=== PATIENT | female | born 1945 | race Caucasian/White ===

== ENCOUNTER 2018-01-31 13:08 | Emergency (ER) | payer MEDICARE, MEDICAID, SELFPAY ==
[2018-01-31 13:09] VITALS: BP 121/75; PULSE 74; RESP 18; O2SAT 98; BMI 26.5
--- NOTE | 2018-01-31 13:13 | [facility].EDSKAF ---
ED Disposition Clinical Impression: Cellulitis of left hand excluding fingers and thumb Disposition: Home, Self-Care Condition on Discharge: Good Additional Instructions: Draw a line around erythematous area, date and time it; do serial checks q shift; if any fever, vomiting, not keeping down antibiotics or if cellulitis becomes circumferential, involves digits or expands to twice its current size contact PCP for further instructions; needs to be seen by PCP in one to two days for recheck hand. Continue Keflex and Bactrim as prescribed, given first doses in ER today and will need second doses this evening before bed. Prescriptions: cephALEXin [Keflex 500mg Cap] 500 mg PO QID #40 cap Sulfamethoxazole/Trimethoprim [Bactrim DS tablet] 1 each PO BID 10 Days #20 tab - Critical Care Critical Care Time: No Attestation: On , the high probability of a clinically significant, sudden or life threatening deterioration of the following system(s) required my full and direct attention, intervention and personal management. The time I documented below is in addition to time spent performing reported procedures but includes the following listed in this critical care notation. Medical Decision Making - Medical Records Medical records reviewed: Yes: I reviewed the patient's medical records. - Wade Inquiry Pt receiving controlled substance: No Vital Signs: 01/31/18 13:09 Temperature Source Oral Pulse Rate [Right Brachial] 74 Respiratory Rate 18 Blood Pressure [Right Arm] 121/75 Blood Pressure Mean [Right Arm] 90 Blood Pressure Source [Right Arm] Automatic Cuff Blood Pressure Position [Right Arm] Sitting 02 Sat by Pulse Oximetry 98 Oxygen Delivery Method Room Air Orders (Tests/Meds): ED MEDICATIONS Discontinued Medications Generic Name Dose Route Start Last Admin Trade Name Phylicia PRN Reason Stop Dose Admin Cephalexin HCl 500 mg 01/31/18 13:48 01/31/18 14:20 Cephalexin 500mg Capsule PO 01/31/18 13:49 500 mg ONCE ONE Administration Protocol Trimethoprim/Sulfamethoxazole 1 each 01/31/18 13:49 01/31/18 14:21 Bactrim Ds Tablet PO 01/31/18 13:50 1 each ONCE ONE Administration Protocol - Reevaluation(s) Time: 14:24 (alert, no complaints, given her scheduled meds, is drinking fluids, able to get out of bed with minimal assistance and able to transfer to a chair w/o assistance; she says it doesn't matter if she has a walker or not but has used one in the past. ) Skin/Abscess/FB HPI - General Chief complaint: Weakness Stated complaint: left hand red Time Seen by Provider: 01/31/18 13:14 Mode of Arrival: EMS Source of Information: EMS, Medical Record Limitations: No Limitations - History of Present Illness HPI narrative: Red hand for the last day or so, dorsum only. No fever or vomiting; FSBS 258 per EMS. No trauma; no joint pain. Patient arrives able to transfer from bed to chair with minimal assistance. Has no complaints. MD complaint: rash Onset (ago): day(s) Tetanus up to date: yes Location: L hand Severity: mild Consistency: constant Relieving factors: none Exacerbating factors: none Context: none Associated symptoms: denies other symptoms Treatments prior to arrival: none - Related Data Previous Rx's Medication Instructions Recorded Sulfamethoxazole/Trimethoprim 1 each PO BID 10 Days #20 tab 01/31/18 [Bactrim DS tablet] cephALEXin [Keflex 500mg Cap] 500 mg PO QID #40 cap 01/31/18 Allergies Allergy/AdvReac Type Severity Reaction Status Date / Time No Known Allergies Allergy Verified 01/31/18 13:14 [facility] History I have reviewed the patient's past medical history: Yes Medical History: Reports:: Diabetes Mellitus Type 2 (psych; ) ROS Obtained: Yes All systems reviewed & no additional complaints Physical Exam - General General appearance: alert, in no apparent distress, other (afebrile) - Head Head exam: atraumatic, normocephalic, normal in
--- NOTE | 2018-01-31 13:16 | ED_ITS ---
ED Disposition Clinical Impression: Cellulitis of left hand excluding fingers and thumb Disposition: Home, Self-Care Condition on Discharge: Good Additional Instructions: Draw a line around erythematous area, date and time it; do serial checks q shift; if any fever, vomiting, not keeping down antibiotics or if cellulitis becomes circumferential, involves digits or expands to twice its current size contact PCP for further instructions; needs to be seen by PCP in one to two days for recheck hand. Continue Keflex and Bactrim as prescribed, given first doses in ER today and will need second doses this evening before bed. Prescriptions: cephALEXin [Keflex 500mg Cap] 500 mg PO QID #40 cap Sulfamethoxazole/Trimethoprim [Bactrim DS tablet] 1 each PO BID 10 Days #20 tab - Critical Care Critical Care Time: No Attestation: On , the high probability of a clinically significant, sudden or life threatening deterioration of the following system(s) required my full and direct attention, intervention and personal management. The time I documented below is in addition to time spent performing reported procedures but includes the following listed in this critical care notation. Medical Decision Making - Medical Records Medical records reviewed: Yes: I reviewed the patient's medical records. - Wade Inquiry Pt receiving controlled substance: No Vital Signs: 01/31/18 13:09 Temperature Source Oral Pulse Rate [Right Brachial] 74 Respiratory Rate 18 Blood Pressure [Right Arm] 121/75 Blood Pressure Mean [Right Arm] 90 Blood Pressure Source [Right Arm] Automatic Cuff Blood Pressure Position [Right Arm] Sitting 02 Sat by Pulse Oximetry 98 Oxygen Delivery Method Room Air Orders (Tests/Meds): ED MEDICATIONS Discontinued Medications Generic Name Dose Route Start Last Admin Trade Name Phylicia PRN Reason Stop Dose Admin Cephalexin HCl 500 mg 01/31/18 13:48 01/31/18 14:20 Cephalexin 500mg Capsule PO 01/31/18 13:49 500 mg ONCE ONE Administration Protocol Trimethoprim/Sulfamethoxazole 1 each 01/31/18 13:49 01/31/18 14:21 Bactrim Ds Tablet PO 01/31/18 13:50 1 each ONCE ONE Administration Protocol - Reevaluation(s) Time: 14:24 (alert, no complaints, given her scheduled meds, is drinking fluids , able to get out of bed with minimal assistance and able to transfer to a chair w/o assistance; she says it doesn't matter if she has a walker or not but has used one in the past. ) Skin/Abscess/FB HPI - General Chief complaint: Weakness Stated complaint: left hand red Time Seen by Provider: 01/31/18 13:14 Mode of Arrival: EMS Source of Information: EMS, Medical Record Limitations: No Limitations - History of Present Illness HPI narrative: Red hand for the last day or so, dorsum only. No fever or vomiting; FSBS 258 per EMS. No trauma; no joint pain. Patient arrives able to transfer from bed to chair with minimal assistance. Has no complaints. MD complaint: rash Onset (ago): day(s) Tetanus up to date: yes Location: L hand Severity: mild Consistency: constant Relieving factors: none Exacerbating factors: none Context: none Associated symptoms: denies other symptoms Treatments prior to arrival: none - Related Data Previous Rx's Medication Instructions Recorded Sulfamethoxazole/Tr
--- NOTE | 2018-01-31 13:49 | PC.NURSE ---
Mariano called for transport back
[2018-01-31 15:30] VITALS: BP 113/76; PULSE 75; RESP 20; TEMP 36.6; O2SAT 97
== END 2018-01-31 15:30 | disposition home or self-care (01) ==
PROVIDERS: Emergency Provider Emergency Medicine
DX: L03.114 Cellulitis of left upper limb (principal); E11.9 Type 2 diabetes mellitus without complications
CPT/HCPCS: 99281

== ENCOUNTER → 2018-07-16 07:22 | Outpatient (REF) | payer MEDICARE, MEDICAID, SELFPAY ==
[2018-07-16 07:26] LABS: Adenovirus F 40/41, stool Not Detected (NotDetected); Astrovirus Not Detected (NotDetected); Campylobacter Not Detected (NotDetected); Clostridium Difficile A/B, PCR Not Detected (NotDetected); Cryptosporidium Not Detected (NotDetected); Cyclospora Cayetanesis Not Detected (NotDetected); Entamoeba histolytica Not Detected (NotDetected); Enteroaggregative E coli Not Detected (NotDetected); Enteropathogenic E coli Not Detected (NotDetected); Enterotoxigenic E coli Not Detected (NotDetected); Giardia lamblia Not Detected (NotDetected); Norovirus Not Detected (NotDetected); Plesimonas Shigalloides, PCR Not Detected (NotDetected); Rotavirus A Not Detected (NotDetected); Salmonella, PCR Not Detected (NotDetected); Sapovirus Not Detected (NotDetected); Shiga-like toxin E coli Not Detected (NotDetected); Shigella Enterovasive E coli Not Detected (NotDetected); Vibrio Cholerae Not Detected (NotDetected); Vibrio, PCR Not Detected (NotDetected); Yersinia Entercolitica, PCR Not Detected (NotDetected)
== END ==
LOC: LAB 07:22
PROVIDERS: Visit Provider Emergency Medicine
DX: R19.7 Diarrhea, unspecified (principal)
CPT/HCPCS: 87507

== ENCOUNTER → 2018-09-10 14:59 | Outpatient (CLI) | payer MEDICARE, MEDICAID, SELFPAY ==
[2018-09-10 15:05] LABS: Microscopic, Urine URINE MICROSCOPIC (MICROSCOPIC)
[2018-09-10 15:19] LABS: Basophils % 0.3 % (0.1-2.0); Eosinophils % 0.2 % (0.1-12.0); Hematocrit 37.7 % (37.0-47.0); Hemoglobin 12.5 g/dL (12.2-16.2); Lymphocytes # 1.4 K/mm3 (0.7-4.5); Lymphocytes % 8.5 K/mm3 (10-50); Mean Corpuscular HGB Conc 33.2 g/dL (31.8-35.4); Mean Corpuscular Hemoglobin 29.4 pg (27.0-31.2); Mean Corpuscular Volume 88.4 fl (81-99); Mean Platelet Volume 7.2 fl (7.4-10.4); Monocytes # 1.1 K/mm3 (0.1-1.0); Monocytes % 6.5 % (1.7-9.3); Neutrophils # 13.8 K/mm3 (1.8-7.8); Neutrophils % 84.6 % (37.0-80.0); Platelet Count 414 K/mm3 (142-424); Red Blood Count 4.26 M/mm3 (4.20-5.40); Red Cell Distribution Width 14.6 % (11.5-17.5); White Blood Count 16.3 K/mm3 (4.8-10.8)
[2018-09-10 15:23] LABS: MANUAL DIFFERENTIAL MANUAL DIFFERENTIAL (MANUAL DIFF)
[2018-09-10 15:26] LABS: Appearance,Urine CLOUDY (Clear); Blood, Urine Negative (Negative); Color,Urine DK YELLOW (Yellow); Glucose,Urine (UA) 1+ (Negative); Ketones,Urine TRACE (Negative); Leukocyte Esterase,Urine Negative (Negative); Nitrate,Urine Negative (Negative); Protein,Urine 1+ (Negative); Specific Gravity, Urine 1.025 (1.005-1.030)
[2018-09-10 15:39] LABS: Bilirubin,Urine 1+ (Negative)
[2018-09-10 15:41] LABS: Bacteria,Urine Trace /lpf; Squamous Epithelial Cell,Urine Occasional #/hpf (0-5)
[2018-09-10 16:32] LABS: Lymphocytes % 9 % (10-50); Monocytes % 7 % (2-9); Neutrophils % 80 % (42-76); Total Cells Counted 100
[2018-09-10 16:34] LABS: Platelet Estimate Normal
[2018-09-10 17:59] LABS: Alanine Aminotransferase 36 U/L (12-78); Albumin/Globulin Ratio 0.9 (1.1-1.8); Alkaline Phosphatase 66 U/L (46-116); Anion Gap 13.4 mEq/L (5-15); Aspartate Amino Transferase 30 U/L (15-37); Bilirubin,Total 1.1 mg/dL (0.2-1.0); Blood Urea Nitrogen 24 mg/dL (7-18); Calcium 8.9 mg/dL (8.5-10.1); Carbon Dioxide 28 mmol/L (21.0-32.0); Chloride 96 mmol/L (98-107); Creatinine,Serum 0.66 mg/dL (0.55-1.02); Estimated Glomerular Filt Rate 88 ml/min (>60); GFR (African American) 106 ML/MIN (>60); Globulin 3.5 gm/dl (1.3-3.2); Glucose 101 mg/dL (74-106); Potassium 3.4 mmoL/L (3.5-5.1); Sodium 134 mmol/L (136-145); Total Protein,Serum 6.5 gm/dL (6.4-8.2)
== END ==
PROVIDERS: Visit Provider Emergency Medicine
DX: E11.9 Type 2 diabetes mellitus without complications (principal); R19.7 Diarrhea, unspecified
CPT/HCPCS: 80053; 81001; 85007; 85025

== ENCOUNTER → 2018-09-11 02:20 | Outpatient (CLI) | payer MEDICARE, MEDICAID, SELFPAY ==
[2018-09-11 15:24] LABS: Adenovirus F 40/41, stool Not Detected (NotDetected); Astrovirus Not Detected (NotDetected); Campylobacter Not Detected (NotDetected); Cryptosporidium Not Detected (NotDetected); Cyclospora Cayetanesis Not Detected (NotDetected); Entamoeba histolytica Not Detected (NotDetected); Enteroaggregative E coli Not Detected (NotDetected); Enteropathogenic E coli Not Detected (NotDetected); Enterotoxigenic E coli Not Detected (NotDetected); Giardia lamblia Not Detected (NotDetected); Norovirus Not Detected (NotDetected); Plesimonas Shigalloides, PCR Not Detected (NotDetected); Rotavirus A Not Detected (NotDetected); Salmonella, PCR Not Detected (NotDetected); Sapovirus Not Detected (NotDetected); Shiga-like toxin E coli Not Detected (NotDetected); Shigella Enterovasive E coli Not Detected (NotDetected); Vibrio Cholerae Not Detected (NotDetected); Vibrio, PCR Not Detected (NotDetected); Yersinia Entercolitica, PCR Not Detected (NotDetected)
[2018-09-11 20:01] LABS: Clostridium Difficile A/B, PCR Detected (NotDetected)
== END ==
LOC: LAB 15:21 → LAB.DROPOF 15:22
PROVIDERS: Visit Provider Emergency Medicine
DX: R19.7 Diarrhea, unspecified (principal)
CPT/HCPCS: 87507

== ENCOUNTER 2018-11-04 13:48 | Observation (INO) ==
[2018-11-04 14:25] LABS: Basophils % 0.6 % (0.1-2.0); Eosinophils # 0.1 K/mm3 (0.0-0.4); Eosinophils % 1.1 % (0.1-12.0); Hematocrit 41.4 % (37.0-47.0); Hemoglobin 13.2 g/dL (12.2-16.2); Lymphocytes # 1.5 K/mm3 (0.7-4.5); Lymphocytes % 17.8 % (10-50); Mean Corpuscular HGB Conc 31.8 g/dL (31.8-35.4); Mean Corpuscular Volume 91.4 fl (81-99); Mean Platelet Volume 7.3 fl (7.4-10.4); Monocytes # 0.4 K/mm3 (0.1-1.0); Monocytes % 4.7 % (1.7-9.3); Neutrophils # 6.2 K/mm3 (1.8-7.8); Neutrophils % 75.8 % (37.0-80.0); Platelet Count 522 K/mm3 (142-424); Red Blood Count 4.53 M/mm3 (4.20-5.40); Red Cell Distribution Width 15.3 % (11.5-17.5); White Blood Count 8.2 K/mm3 (4.8-10.8)
[2018-11-04 14:36] LABS: Alanine Aminotransferase 24 U/L (12-78); Albumin Level 3.2 gm/dL (3.4-5.0); Albumin/Globulin Ratio 0.8 (1.1-1.8); Alkaline Phosphatase 94 U/L (46-116); Amylase 60 U/L (25-115); Anion Gap 18.5 mEq/L (5-15); Aspartate Amino Transferase 24 U/L (15-37); Bilirubin,Total 0.4 mg/dL (0.2-1.0); Blood Urea Nitrogen 45 mg/dL (7-18); Calcium 9.4 mg/dL (8.5-10.1); Carbon Dioxide 27 mmol/L (21.0-32.0); Chloride 107 mmol/L (98-107); Globulin 4.2 gm/dl (1.3-3.2); Glucose 100 mg/dL (74-106); Lipase 78 u/L (73-393); Potassium 3.5 mmoL/L (3.5-5.1); Sodium 149 mmol/L (136-145); Total Protein,Serum 7.4 gm/dL (6.4-8.2)
--- NOTE | 2018-11-04 14:45 | Emergency Department Note ---
ED Disposition Clinical Impression: Dehydration Dysphagia Qualifiers: Dysphagia type: unspecified Qualified Code(s): R13.10 - Dysphagia, unspecified Disposition: Still a Patient Condition on Discharge: Fair Referrals: Provider,Referral, [Primary Care Provider] - - Critical Care Critical Care Time: No Attestation: On 11/04/18, the high probability of a clinically significant, sudden or life threatening deterioration of the following system(s) required my full and direct attention, intervention and personal management. The time I documented below is in addition to time spent performing reported procedures but includes the following listed in this critical care notation. Medical Decision Making - Wade Inquiry Pt receiving controlled substance: No Vital Signs: 11/04/18 13:46 11/04/18 13:52 Temperature 98.0 F Temperature Source Oral Pulse Rate [Right] 78 Respiratory Rate 18 Blood Pressure [Right Arm] 95/61 L 111/62 Blood Pressure Mean [Right Arm] 72 78 Blood Pressure Source [Right Arm] Automatic Cuff Automatic Cuff Blood Pressure Position [Right Arm] Sitting Sitting 02 Sat by Pulse Oximetry 97 98 Oxygen Delivery Method Room Air - Lab Data Lab Results 11/04/18 14:10: WBC 8.2, RBC 4.53, Hgb 13.2, Hct 41.4, MCV 91.4, MCH 29.0, MCHC 31.8, RDW 15.3, Plt Count 522 H, MPV 7.3 L, Neut % (Auto) 75.8, Lymph % (Auto) 17.8, [place] % (Auto) 4.7, Eos % (Auto) 1.1, Baso % (Auto) 0.6, Neut # (Auto) 6.2, Lymph # (Auto) 1.5, [place] # (Auto) 0.4, Eos # (Auto) 0.1, Baso # (Auto) 0.0 11/04/18 14:10: Sodium 149 H, Potassium 3.5, Chloride 107, Carbon Dioxide 27, Anion Gap 18.5 H, BUN 45 H, Creatinine 1.22 H, Estimated Creat Clear 30, Estimated GFR 43 L, Est GFR ( Amer) 52 L, Glucose 100, Calcium 9.4, Total Bilirubin 0.4, AST 24, ALT 24, Alkaline Phosphatase 94, Troponin I < 0.02, Total Protein 7.4, Albumin 3.2 L, Globulin 4.2 H, Albumin/Globulin Ratio 0.8 L, Amylase 60, Lipase 78 11/04/18 14:10: Lactate 0.9 11/04/18 14:39: Urine Color Yellow, Urine Appearance Sl cloudy, Urine pH 6.0, Ur Specific [place] 1.025, Urine Protein Trace, Urine Glucose (UA) Negative, Urine Ketones Trace, Urine Blood Trace-l, Urine Nitrate Negative, Urine Bilirubin Negative, Urine Urobilinogen 0.2, Ur Leukocyte Esterase 2+ A, Urine RBC None, Urine WBC 5-10, Ur Squamous Epith Cells 5-10, Urine Bacteria 3+ Result diagrams: 11/04/18 14:10 11/04/18 14:10 Orders (Tests/Meds): ED MEDICATIONS Generic Name Dose Route Start Last Admin Trade Name Freq PRN Reason Stop Dose Admin Sodium Chloride 1,000 mls @ 150 mls/hr 11/04/18 15:15 11/04/18 15:26 Sod Chlor 0.9% 1000ml Bag IV 12/04/18 15:14 150 mls/hr .[id number] GREG Administration Discontinued Medications Generic Name Dose Route Start Last Admin Trade Name Freq PRN Reason Stop Dose Admin Sodium Chloride 1,000 ml 11/04/18 14:59 Sod Chlor 0.9% 1000ml Bag IV 11/04/18 15:00 BOLUS ONE ORDERS Category Date Time Status Rapid Influenza A&B Antigens Stat Lab 11/04/18 13:59 Ordered Urinalysis and Microscopic Stat Lab 11/04/18 14:39 Ordered Blood Culture Stat Micro 11/04/18 14:14 Ordered Urine Culture Stat Micro 11/04/18 14:39 Received - Radiology Data #1 Image(s): Chest Image Reviewed: Yes I have reviewed radiologist's interpretation FINDINGS: The cardiomediastinal silhouette and pulmonary vascularity are within normal limits. The lungs are clear without infiltrates, suspicious nodules, or pleural effusions. No acute bony abnormalities. There are mild degenerative changes in both shoulders right greater than left. There is lateral downsloping acromion process right side with mild subacromial stenosis noted. IMPRESSION: Nonacute chest findings, findings suggesting mild predisposition to impingement syndrome right shoulder Dictated By: Tato Link Signed By: <Electronically signed by Tato Link in OV> 11/04/18 1503 - CT Data CT Scan: Head Time Received: 15:[address] Reviewed: Yes: I have viewed the radiologist's interpretation Findings Narrative: IMPRESSION: Findings of moderate cortical atrophy and chronic white matter changes, no definite acute intracranial pathology noted Dictated By: Tato Link Signed By: <Electronically signed by Tato Link in OV> 11/04/18 1423 - Physician Consults Physician Consulted: Dora Duran RV SERVICE TECHNICIAN for Dr. Ye Time: 15:31 Reason -: Admission Comment/Response: Agrees to admit the patient to the hospital. We discussed the patient's clinical information, including history, exam, laboratory and radiology results and ED course. Per hospital procedure, I will write temporary bridge inpatient orders on the patient. Specific orders requested by the admitting physician: Admit for hydration and further evaluation General Adult HPI - General Chief complaint: Weakness Stated complaint: failure to thrive Time Seen by Provider: 11/04/18 14:44 Mode of Arrival: EMS Limitations: No Limitations Description of Symptoms (Recalled from ER Triage Doc. by RN): failure to thrive for one month; pt presents stating feeling like she doesn't feel well and hasn't for awhile - History of Present Illness HPI narrative: History obtained from nursing staff and EMS run sheet. The patient is a resident of [facility]. EMS run sheet states that she has had failure to thrive for the past month. Not wanting to eat or take daily medications. Nausea vomiting and spitting up for 1 day. The patient's chief complaint to me is "mouthful of spit". States she is not able to eat. She is having no pain. Noted to have appointment for EGD/colonoscopy on 11/16/18. - Related Data Home Medications Medication Instructions Recorded Confirmed lisinopril 20 mg tablet 20 mg PO ONCE 02/17/18 11/04/18 loperamide 2 mg tablet 2 mg PO Q4H 02/17/18 11/04/18 metformin 1,000 mg tablet 1,000 mg PO BID 02/17/18 11/04/18 risperidone 2 mg tablet 2 mg PO ONCE 02/17/18 11/04/18 sitagliptin 100 mg tablet 100 mg PO ONCE 02/17/18 11/04/18 acetaminophen 500 mg tablet 500 mg PO Q6H PRN 05/07/18 11/04/18 melatonin 5 mg capsule 5 mg PO DAILY 05/07/18 11/04/18 cephALEXin [Keflex 500mg Cap] 500 mg PO QID 11/04/18 11/04/18 Allergies Allergy/AdvReac Type Severity Reaction Status Date / Time No Known Allergies Allergy Verified 10/02/18 11:51 [facility] History - Hepatitis A Screen Drug use history?: No High risk sexual behaviors?: No History of sexually transmitted infection?: No Currently employed?: No Childcare worker?: No Do you have indoor plumbing?: Yes Do you have electricity?: Yes Attestation statement:: This patient has been screened for Hepatitis A risk factors. I have reviewed the patient's past medical history: Yes Medical History: Reports:: Diabetes Mellitus Type 2, Hypertension Other Medical History: Reports: Arthritis Other Surgeries: Yes: Hysterectomy-Total - Social History Educational Level: Completed High School Smoking Status: Unknown if ever smoked Alcohol Intake: never - Psychiatric History Expresses thoughts of harming self/others: None Suicide Plan Description: No Plan Family Hx:: Unable to obtain ROS Obtained: Yes All systems reviewed & no additional complaints - Constitutional Constitutional: Denies fever(s) - ENT Ears, Nose, Mouth, and Throat: Reports as per HPI - Cardiovascular Cardiovascular: Denies chest pain - Respiratory Respiratory: No dyspnea - Gastrointestinal Gastrointestingal: Reports: as per HPI. Denies: abdominal pain Physical Exam - General General appearance: alert, in no apparent distress Comment: Spitting out saliva. Some intermittent retching during my exam. - Head Head exam: atraumatic, normocephalic - Eye Eye exam: Present: PERRL, EOMI - ENT ENT exam: Present: mucous membranes moist - Neck Neck exam: Present: normal inspection, trachea midline - Respiratory Respiratory exam: Present: normal lung sounds bilaterally. Absent: respiratory distress - Cardiovascular Cardiovascular exam: Present: regular rate, normal rhythm, normal heart sounds - Abdominal Exam Abdominal exam: Present: soft. Absent: distention, tenderness - Neurological Exam Neurological exam: Present: alert, other (Resting tremor of extremities). Absent: oriented X3 (Oriented to person only) - Psychiatric Psychiatric exam: Present: flat affect - Skin Skin exam: Present: warm, dry
[2018-11-04 14:47] LABS: Microscopic, Urine URINE MICROSCOPIC (MICROSCOPIC)
[2018-11-04 14:50] LABS: Appearance,Urine SL CLOUDY (Clear); Blood, Urine TRACE-L (Negative); Color,Urine YELLOW (Yellow); Glucose,Urine (UA) Negative (Negative); Ketones,Urine TRACE (Negative); Leukocyte Esterase,Urine 2+ (Negative); Protein,Urine TRACE (Negative); Specific Gravity, Urine 1.025 (1.005-1.030); Urobilinogen,Urine 0.2 EU/dl (0.2)
[2018-11-04 14:56] LABS: Bilirubin,Urine Negative (Negative)
[2018-11-04 15:06] LABS: Bacteria,Urine 3+ /lpf
[2018-11-05 07:21] LABS: Basophils # 0.1 K/mm3 (0-0.2); Basophils % 0.7 % (0.1-2.0); Eosinophils # 0.2 K/mm3 (0.0-0.4); Eosinophils % 2.3 % (0.1-12.0); Hematocrit 34.5 % (37.0-47.0); Lymphocytes % 23.9 % (10-50); Mean Corpuscular HGB Conc 32.5 g/dL (31.8-35.4); Mean Corpuscular Hemoglobin 29.9 pg (27.0-31.2); Mean Corpuscular Volume 91.8 fl (81-99); Mean Platelet Volume 7.3 fl (7.4-10.4); Monocytes # 0.4 K/mm3 (0.1-1.0); Neutrophils # 5.5 K/mm3 (1.8-7.8); Neutrophils % 68.1 % (37.0-80.0); Platelet Count 401 K/mm3 (142-424); Red Blood Count 3.76 M/mm3 (4.20-5.40); Red Cell Distribution Width 15.2 % (11.5-17.5); White Blood Count 8.1 K/mm3 (4.8-10.8)
[2018-11-05 07:26] LABS: Albumin Level 2.5 gm/dL (3.4-5.0); Albumin/Globulin Ratio 0.7 (1.1-1.8); Anion Gap 17.3 mEq/L (5-15); Bilirubin,Total 0.4 mg/dL (0.2-1.0); Calcium 8.5 mg/dL (8.5-10.1); Globulin 3.4 gm/dl (1.3-3.2); Potassium 3.3 mmoL/L (3.5-5.1); Total Protein,Serum 5.9 gm/dL (6.4-8.2)
--- NOTE | 2018-11-05 07:29 | Consult Report ---
*Admission Date: 11/04/18 *Chief complaint: nausea *History of present illness: This is a 73-year-old female seen in consultation from the service of Dr. Ye for evaluation regarding possible dysphasia and a recent history of nausea/vomiting. Over the past month she has had what was initially described as difficulty swallowing. She is a poor historian; however, she does state that she "cannot swallow". She states that she "feels sick". No fevers. No jaundice. Review of Systems - Constitutional Reports anorexia - *Cardiovascular Denies chest pain - *Respiratory Denies cough - *Gastrointestinal Reports nausea, Reports vomiting - Hematologic/Lymphatic Denies easy bleeding [facility] History Medical History: Reports:: Diabetes Mellitus Type 2, Hypertension Denies:: Cancer, Diabetes Mellitus Type 1, MRSA Other Medical History: Reports: Arthritis, Cataracts Other Surgeries: Yes: Hysterectomy-Total Amputation: No Fractures: No - *Social History Educational Level: Completed Grade School Smoking Status: Unknown if ever smoked Alcohol Intake: never Occupational Status: retired Housing: [facility] Household Members: other - Psychiatric History Expresses thoughts of harming self/others: None Suicide Plan Description: No Plan *Family Hx:: Unable to obtain Meds Home Medications Medication Instructions Recorded Confirmed Type lisinopril 20 mg tablet 20 mg PO ONCE 02/17/18 11/04/18 History loperamide 2 mg tablet 2 mg PO Q4H 02/17/18 11/04/18 History metformin 1,000 mg tablet 1,000 mg PO BID 02/17/18 11/04/18 History risperidone 2 mg tablet 1 mg PO BID 02/17/18 11/04/18 History acetaminophen 500 mg tablet 500 mg PO Q6H PRN 05/07/18 11/04/18 History melatonin 5 mg capsule 5 mg PO DAILY 05/07/18 11/04/18 History Escitalopram Oxalate [Lexapro] 5 mg PO DAILY 11/04/18 11/04/18 History Mirtazapine [Remeron 15mg tablet] 15 mg PO HS 11/04/18 11/04/18 History Allergies Allergy/AdvReac Type Severity Reaction Status Date / Time No Known Allergies Allergy Verified 10/02/18 11:51 Exam Vital signs and Labs for Last 24 Hours: Temp Pulse Resp BP Pulse Ox 98.3 F 75 18 131/62 95 11/05/18 04:00 11/05/18 04:00 11/05/18 04:00 11/05/18 04:00 11/05/18 04:00 Laboratory Results - last 24 hr 11/04/18 14:10: WBC 8.2, RBC 4.53, Hgb 13.2, Hct 41.4, MCV 91.4, MCH 29.0, MCHC 31.8, RDW 15.3, Plt Count 522 H, MPV 7.3 L, Neut % (Auto) 75.8, Lymph % (Auto) 17.8, [place] % (Auto) 4.7, Eos % (Auto) 1.1, Baso % (Auto) 0.6, Neut # (Auto) 6.2, Lymph # (Auto) 1.5, [place] # (Auto) 0.4, Eos # (Auto) 0.1, Baso # (Auto) 0.0 11/04/18 14:10: Sodium 149 H, Potassium 3.5, Chloride 107, Carbon Dioxide 27, Anion Gap 18.5 H, BUN 45 H, Creatinine 1.22 H, Estimated Creat Clear 30, Estimated GFR 43 L, Est GFR ( Amer) 52 L, Glucose 100, Calcium 9.4, Total Bilirubin 0.4, AST 24, ALT 24, Alkaline Phosphatase 94, Troponin I < 0.02, Total Protein 7.4, Albumin 3.2 L, Globulin 4.2 H, Albumin/Globulin Ratio 0.8 L, Amylase 60, Lipase 78 11/04/18 14:10: Lactate 0.9 11/04/18 14:39: Urine Color Yellow, Urine Appearance Sl cloudy, Urine pH 6.0, Ur Specific [place] 1.025, Urine Protein Trace, Urine Glucose (UA) Negative, Urine Ketones Trace, Urine Blood Trace-l, Urine Nitrate Negative, Urine Bilirubin Negative, Urine Urobilinogen 0.2, Ur Leukocyte Esterase 2+ A, Urine RBC None, Urine WBC 5-10, Ur Squamous Epith Cells 5-10, Urine Bacteria 3+ 11/04/18 17:05: POC Glucose 91 11/04/18 21:22: POC Glucose 84 11/05/18 06:02: POC Glucose 70 11/05/18 06:58: WBC 8.1, RBC 3.76 L, Hct 34.5 L, MCV 91.8, MCH 29.9, MCHC 32.5, RDW 15.2, Plt Count 401, MPV 7.3 L, Neut % (Auto) 68.1, Lymph % (Auto) 23.9, [place] % (Auto) 5.0, Eos % (Auto) 2.3, Baso % (Auto) 0.7, Neut # (Auto) 5.5, Lymph # (Auto) 2.0, [place] # (Auto) 0.4, Eos # (Auto) 0.2, Baso # (Auto) 0.1 I & O for Last 24 hours: Intake & Output 11/02/18 11/03/18 11/04/18 11/05/18 11:59 11:59 11:59 11:59 Intake Total 2800 / 2800 Output Total 500 / 500 Balance 2300 / 2300 Weight 97 lb 7 oz Microbiology Reports for the Last 24 Hours: Microbiology 11/04/18 14:39 Urine,Catheterized Urine Culture - Preliminary - Constitutional no acute distress - *Routine Respiratory Exam Absent: respiratory distress - *Routine Abdominal Exam Present: soft Results - Labs 11/05/18 06:58 11/04/18 14:10 Laboratory Results - last 24 hr 11/04/18 14:10: WBC 8.2, RBC 4.53, Hgb 13.2, Hct 41.4, MCV 91.4, MCH 29.0, MCHC 31.8, RDW 15.3, Plt Count 522 H, MPV 7.3 L, Neut % (Auto) 75.8, Lymph % (Auto) 17.8, [place] % (Auto) 4.7, Eos % (Auto) 1.1, Baso % (Auto) 0.6, Neut # (Auto) 6.2, Lymph # (Auto) 1.5, [place] # (Auto) 0.4, Eos # (Auto) 0.1, Baso # (Auto) 0.0 11/04/18 14:10: Sodium 149 H, Potassium 3.5, Chloride 107, Carbon Dioxide 27, Anion Gap 18.5 H, BUN 45 H, Creatinine 1.22 H, Estimated Creat Clear 30, Estimated GFR 43 L, Est GFR ( Amer) 52 L, Glucose 100, Calcium 9.4, Total Bilirubin 0.4, AST 24, ALT 24, Alkaline Phosphatase 94, Troponin I < 0.02, Total Protein 7.4, Albumin 3.2 L, Globulin 4.2 H, Albumin/Globulin Ratio 0.8 L, Amylase 60, Lipase 78 11/04/18 14:10: Lactate 0.9 11/04/18 14:39: Urine Color Yellow, Urine Appearance Sl cloudy, Urine pH 6.0, Ur Specific [place] 1.025, Urine Protein Trace, Urine Glucose (UA) Negative, Urine Ketones Trace, Urine Blood Trace-l, Urine Nitrate Negative, Urine Bilirubin Negative, Urine Urobilinogen 0.2, Ur Leukocyte Esterase 2+ A, Urine RBC None, Urine WBC 5-10, Ur Squamous Epith Cells 5-10, Urine Bacteria 3+ 11/04/18 17:05: POC Glucose 91 11/04/18 21:22: POC Glucose 84 11/05/18 06:02: POC Glucose 70 11/05/18 06:58: WBC 8.1, RBC 3.76 L, Hct 34.5 L, MCV 91.8, MCH 29.9, MCHC 32.5, RDW 15.2, Plt Count 401, MPV 7.3 L, Neut % (Auto) 68.1, Lymph % (Auto) 23.9, [place] % (Auto) 5.0, Eos % (Auto) 2.3, Baso % (Auto) 0.7, Neut # (Auto) 5.5, Lymph # (Auto) 2.0, [place] # (Auto) 0.4, Eos # (Auto) 0.2, Baso # (Auto) 0.1 Assessment and Plan (1) Nausea & vomiting Current visit: Yes Status: Acute Category: Medical Code(s): R11.2 - Nausea with vomiting, unspecified Uncertain etiology. Possibly secondary to gastroparesis. Possibly secondary to biliary disease. She may require additional evaluation to include gastric emptying scan, right upper quadrant ultrasound, small bowel follow-through, etc. [particularly if modified barium swallow not grossly abnormal]. (2) Dehydration Current visit: Yes Status: Acute Category: Medical Code(s): E86.0 - Dehydration (3) Dysphagia Current visit: Yes Status: Acute Qualifiers: Dysphagia type: unspecified Qualified Code(s): R13.10 - Dysphagia, unspecified Category: Medical Code(s): R13.10 - Dysphagia, unspecified Uncertain as to etiology and if this truly represents dysphasia or is simply secondary to recent nausea. Modified barium swallow ordered. Consideration of percutaneous endoscopic gastrostomy tube if modified barium swallow abnormal.
[2018-11-05 07:33] LABS: Hemoglobin 11.2 g/dL (12.2-16.2)
--- NOTE | 2018-11-05 07:56 | Pharmacy Consult Notes ---
[facility] Pharmacy VTE Monitoring - Patient Demographics Admission date: 11/04/18 Report Date: 11/05/18 Time: 07:56 Allergies/Adverse Reactions: Patient Allergies No Known Allergies Allergy (Verified 10/02/18 11:51) Height: 1.65 m Weight: 44.197 kg Patient Problems: Current Active Problems Dysphagia (Acute) Dehydration (Acute) Nausea & vomiting (Acute) - VTE Risk Labs: VTE Related Lab Results Hgb 11.2 g/dL (12.2-16.2) L D 11/05/18 06:58 Hct 34.5 % (37.0-47.0) L 11/05/18 06:58 Plt Count 401 K/mm3 (142-424) 11/05/18 06:58 BUN 35 mg/dL (7-18) H 11/05/18 06:58 Creatinine 0.83 mg/dL (0.55-1.02) D 11/05/18 06:58 Estimated Creat Clear 34 mL/min (50-200) 11/05/18 06:58 Was VTE Risk Assessment Performed: Yes VTE Score: 2 VTE Risk Level: Low Risk - Prophylaxis VTE Prophylaxis Ordered?: Yes Types of VTE Prophylaxis: TEDS Knee High Location of Applied Device: Bilateral Lower Extremeties - VTE Diagnosis Confirmed Treatment or plan recommended: Continue Current Treatment
--- NOTE | 2018-11-05 09:58 | Progress Note ---
Internal Medicine - PN: Subj *Date: 11/05/18 *Time: 08:00 Interval history: Patient awake and alert this a.m. When patient asked if she wanted a feeding tube patient states "no." When asked if she understands what a feeding tube is she said "yes to to put him on his stomach to feed me." Exam Vital signs and Labs for Last 24 Hours: Temp Pulse Resp BP Pulse Ox 98.3 F 74 17 154/68 H 98 11/05/18 08:00 11/05/18 08:00 11/05/18 08:00 11/05/18 08:00 11/05/18 08:00 Laboratory Results - last 24 hr 11/04/18 14:10: WBC 8.2, RBC 4.53, Hgb 13.2, Hct 41.4, MCV 91.4, MCH 29.0, MCHC 31.8, RDW 15.3, Plt Count 522 H, MPV 7.3 L, Neut % (Auto) 75.8, Lymph % (Auto) 17.8, [place] % (Auto) 4.7, Eos % (Auto) 1.1, Baso % (Auto) 0.6, Neut # (Auto) 6.2, Lymph # (Auto) 1.5, [place] # (Auto) 0.4, Eos # (Auto) 0.1, Baso # (Auto) 0.0 11/04/18 14:10: Sodium 149 H, Potassium 3.5, Chloride 107, Carbon Dioxide 27, Anion Gap 18.5 H, BUN 45 H, Creatinine 1.22 H, Estimated Creat Clear 30, Estimated GFR 43 L, Est GFR ( Amer) 52 L, Glucose 100, Calcium 9.4, Total Bilirubin 0.4, AST 24, ALT 24, Alkaline Phosphatase 94, Troponin I < 0.02, Total Protein 7.4, Albumin 3.2 L, Globulin 4.2 H, Albumin/Globulin Ratio 0.8 L, Amylase 60, Lipase 78 11/04/18 14:10: Lactate 0.9 11/04/18 14:39: Urine Color Yellow, Urine Appearance Sl cloudy, Urine pH 6.0, Ur Specific [place] 1.025, Urine Protein Trace, Urine Glucose (UA) Negative, Urine Ketones Trace, Urine Blood Trace-l, Urine Nitrate Negative, Urine Bilirubin Negative, Urine Urobilinogen 0.2, Ur Leukocyte Esterase 2+ A, Urine RBC None, Urine WBC 5-10, Ur Squamous Epith Cells 5-10, Urine Bacteria 3+ 11/04/18 17:05: POC Glucose 91 11/04/18 21:22: POC Glucose 84 11/05/18 06:02: POC Glucose 70 11/05/18 06:58: WBC 8.1, RBC 3.76 L, Hgb 11.2 L D, Hct 34.5 L, MCV 91.8, MCH 29.9, MCHC 32.5, RDW 15.2, Plt Count 401, MPV 7.3 L, Neut % (Auto) 68.1, Lymph % (Auto) 23.9, [place] % (Auto) 5.0, Eos % (Auto) 2.3, Baso % (Auto) 0.7, Neut # (Auto) 5.5, Lymph # (Auto) 2.0, [place] # (Auto) 0.4, Eos # (Auto) 0.2, Baso # (Auto) 0.1 11/05/18 06:58: Sodium 153 H*, Potassium 3.3 L, Chloride 116 H, Carbon Dioxide 23, Anion Gap 17.3 H, BUN 35 H, Creatinine 0.83 D, Estimated Creat Clear 34, Estimated GFR 67, Est GFR ( Amer) 81 D, Glucose 75 D, Calcium 8.5, Total Bilirubin 0.4, AST 23, ALT 21, Alkaline Phosphatase 75, Total Protein 5.9 L, Albumin 2.5 L D, Globulin 3.4 H, Albumin/Globulin Ratio 0.7 L I & O for Last 24 hours: Intake & Output 11/02/18 11/03/18 11/04/18 11/05/18 11:59 11:59 11:59 11:59 Intake Total 2800 / 2800 Output Total 500 / 500 Balance 2300 / 2300 Weight 97 lb 7 oz Microbiology Reports for the Last 24 Hours: Microbiology 11/04/18 14:39 Urine,Catheterized Urine Culture - Preliminary - Constitutional thin, chronically ill appearing - *Routine HEENT Exam Head: Present: normocephalic Eye: Present: PERRL ENT: Present: mucous membranes moist - *Routine Neck Exam Present: supple. Absent: lymphadenopathy - *Routine Respiratory Exam Present: CTA bilaterally - *Routine Cardiovascular Exam Present: RRR - *Routine Abdominal Exam Present: soft, normoactive bowel sounds. Absent: tenderness - *Routine Extremities Exam Absent: cyanosis, clubbing, edema - *Routine Skin Exam Present: warm. Absent: rash - *Routine Neurological Exam Present: alert - Routine Psychiatric Exam Present: normal affect Assessment and Plan (1) Nausea & vomiting Current visit: Yes Status: Acute Category: Medical Code(s): R11.2 - Nausea with vomiting, unspecified (2) Dehydration Current visit: Yes Status: Acute Category: Medical Code(s): E86.0 - Dehydration (3) Dysphagia Current visit: Yes Status: Acute Qualifiers: Dysphagia type: unspecified Qualified Code(s): R13.10 - Dysphagia, unspecified Category: Medical Code(s): R13.10 - Dysphagia, unspecified - Assessment and plan all Dx Assessment and Plan for all problems:: Rounded with Dr. Ye all orders per Ephraim
--- NOTE | 2018-11-06 06:35 | Progress Note ---
Subjective Patient reports: no new complaints, other Narrative: The patient seems more aware this morning. She states that she does not want a feeding tube and that she understands "what a feeding tube is". She says, "food just tastes bad" and the she "just does not want to eat". She states that she "knows she cannot live without food". I specifically asked that the patient if she would be willing to undergo placement of feeding tube if it allowed her to "live longer". She states, "no I do not want a feeding tube". Exam Vital signs and Labs for Last 24 Hours: Temp Pulse Resp BP Pulse Ox 98.2 F 54 L 20 124/50 L 97 11/06/18 04:00 11/06/18 04:00 11/06/18 04:00 11/06/18 04:00 11/06/18 04:00 Laboratory Results - last 24 hr 11/05/18 06:58: WBC 8.1, RBC 3.76 L, Hgb 11.2 L D, Hct 34.5 L, MCV 91.8, MCH 29.9, MCHC 32.5, RDW 15.2, Plt Count 401, MPV 7.3 L, Neut % (Auto) 68.1, Lymph % (Auto) 23.9, [place] % (Auto) 5.0, Eos % (Auto) 2.3, Baso % (Auto) 0.7, Neut # (Auto) 5.5, Lymph # (Auto) 2.0, [place] # (Auto) 0.4, Eos # (Auto) 0.2, Baso # (Auto) 0.1 11/05/18 06:58: Sodium 153 H*, Potassium 3.3 L, Chloride 116 H, Carbon Dioxide 23, Anion Gap 17.3 H, BUN 35 H, Creatinine 0.83 D, Estimated Creat Clear 34, Estimated GFR 67, Est GFR ( Amer) 81 D, Glucose 75 D, Calcium 8.5, Total Bilirubin 0.4, AST 23, ALT 21, Alkaline Phosphatase 75, Total Protein 5.9 L, Albumin 2.5 L D, Globulin 3.4 H, Albumin/Globulin Ratio 0.7 L 11/05/18 12:11: POC Glucose 68 L 11/05/18 15:03: POC Glucose 68 L 11/05/18 17:06: POC Glucose 78 12/27/18 19:56: POC Glucose 82 11/06/18 05:53: POC Glucose 124 H I & O for Last 24 hours: Intake & Output 11/03/18 11/04/18 11/05/18 11/06/18 11:59 11:59 11:59 11:59 Intake Total 2800 / 2800 1270 / 1270 Output Total 500 / 500 505 / 505 Balance 2300 / 2300 765 / 765 Weight 97 lb 7 oz Microbiology Reports for the Last 24 Hours: Microbiology 11/04/18 14:39 Urine,Catheterized Urine Culture - Preliminary - Constitutional no acute distress - *Routine Respiratory Exam Absent: respiratory distress - *Routine Abdominal Exam Present: soft Progress Note: A&P (1) Nausea & vomiting Status: Acute Current Visit: Yes (2) Dehydration Status: Acute Current Visit: Yes (3) Dysphagia Status: Acute Assessment and plan: Modified barium swallow scheduled for later today. Although the patient specifically does not wish to undergo placement of percutaneous endoscopic gastrostomy tube, the results of her modified barium swallow can still be helpful as they may allow implementation of compensatory mechanisms. In addition, if the patient's modified barium swallow results are essentially normal...this will allow for further evaluation with regard to other etiologies for her symptoms. Current Visit: Yes
[2018-11-06 08:43] LABS: Basophils % 0.5 % (0.1-2.0); Eosinophils # 0.2 K/mm3 (0.0-0.4); Eosinophils % 2.9 % (0.1-12.0); Hematocrit 35.2 % (37.0-47.0); Hemoglobin 11.3 g/dL (12.2-16.2); Lymphocytes # 1.7 K/mm3 (0.7-4.5); Lymphocytes % 22.6 % (10-50); Mean Corpuscular HGB Conc 32.1 g/dL (31.8-35.4); Mean Corpuscular Hemoglobin 28.9 pg (27.0-31.2); Mean Corpuscular Volume 90.1 fl (81-99); Mean Platelet Volume 7.3 fl (7.4-10.4); Monocytes # 0.4 K/mm3 (0.1-1.0); Neutrophils # 5.1 K/mm3 (1.8-7.8); Platelet Count 371 K/mm3 (142-424); Red Blood Count 3.91 M/mm3 (4.20-5.40); Red Cell Distribution Width 15.2 % (11.5-17.5); White Blood Count 7.5 K/mm3 (4.8-10.8)
[2018-11-06 09:09] LABS: Albumin Level 2.5 gm/dL (3.4-5.0); Albumin/Globulin Ratio 0.8 (1.1-1.8); Anion Gap 11.8 mEq/L (5-15); Bilirubin,Total 0.5 mg/dL (0.2-1.0); Calcium 8.4 mg/dL (8.5-10.1); Globulin 3.1 gm/dl (1.3-3.2); Total Protein,Serum 5.6 gm/dL (6.4-8.2)
[2018-11-06 09:14] LABS: Potassium 2.8 mmoL/L (3.5-5.1)
--- NOTE | 2018-11-06 14:25 | History & Physical Report ---
*Admission Date: 11/04/18 (h&P date 11/05/18) *Chief complaint: dehydration *History of present illness: 73-year-old female presents to the ER with complaints of possible dysphasia and a recent history of nausea/vomiting. Over the past month she has had what was initially described as difficulty swallowing has lost 10 pounds in 1 month. Patient states she cannot swallow but does not know why and that makes her nauseous. Patient admitted for surgery consult.. [facility] History I have reviewed the patient's past medical history: Yes Medical History: Reports:: Diabetes Mellitus Type 2, Hypertension Denies:: Cancer, Diabetes Mellitus Type 1, MRSA Other Medical History: Reports: Arthritis, Cataracts Other Surgeries: Yes: Hysterectomy-Total Amputation: No Fractures: No - *Social History Educational Level: Completed Grade School Smoking Status: Unknown if ever smoked Alcohol Intake: never Occupational Status: retired Housing: fdc Household Members: other - Psychiatric History Expresses thoughts of harming self/others: None Suicide Plan Description: No Plan *Family Hx:: Unable to obtain Review of Systems - Review of Systems Review of systems:: pertinent systems reviewed and negative unless documented below - Constitutional Reports weight loss - ENT Reports difficulty swallowing - Allergic/Immunologic Reports GI upset with certain foods Meds Home Medications Medication Instructions Recorded Confirmed Type lisinopril 20 mg tablet 20 mg PO HS 02/17/18 11/05/18 History loperamide 2 mg tablet 2 mg PO Q4HP PRN 02/17/18 11/05/18 History metformin 1,000 mg tablet 1,000 mg PO BID 02/17/18 11/04/18 History risperidone 2 mg tablet 1 mg PO BID 02/17/18 11/05/18 History acetaminophen 500 mg tablet 500 mg PO Q6HP PRN 05/07/18 11/05/18 History melatonin 5 mg capsule 5 mg PO HS 05/07/18 11/05/18 History Escitalopram Oxalate [Lexapro] 5 mg PO DAILY 11/04/18 11/04/18 History Mirtazapine [Remeron 15mg tablet] 15 mg PO HS 11/04/18 11/04/18 History Allergies Allergy/AdvReac Type Severity Reaction Status Date / Time No Known Allergies Allergy Verified 10/02/18 11:51 Exam Vital signs and Labs for Last 24 Hours: Temp Pulse Resp BP Pulse Ox 98.7 F 64 16 144/65 H 98 11/06/18 07:32 11/06/18 07:32 11/06/18 07:32 11/06/18 07:32 11/06/18 07:32 Laboratory Results - last 24 hr 11/04/18 14:39: Urine Color Yellow, Urine Appearance Sl cloudy, Urine pH 6.0, Ur Specific [place] 1.025, Urine Protein Trace, Urine Glucose (UA) Negative, Urine Ketones Trace, Urine Blood Trace-l, Urine Nitrate Negative, Urine Bilirubin Negative, Urine Urobilinogen 0.2, Ur Leukocyte Esterase 2+ A, Urine RBC None, Urine WBC 5-10, Ur Squamous Epith Cells 5-10, Urine Bacteria 3+ 11/05/18 12:11: POC Glucose 68 L 11/05/18 15:03: POC Glucose 68 L 11/05/18 17:06: POC Glucose 78 11/05/18 19:56: POC Glucose 82 11/06/18 03:35: Stl Aeromonas (PCR) Not detected, Stl C. cayetanensis PCR Not detected, Stool Rotavirus (PCR) Not detected, Stl Adenov F 40/41 PCR Not detected, Stool Astrovirus (PCR) Not detected, Stool Campylobacter PCR Not detected, Stl C.difficile Tox PCR Detected A, Stool Cryptosporidium PCR Not detected, Stl E.coli Shiga Tox PCR Not detected, Stool E coli O157 PCR Not detected, Stl Enterotoxigenic E PCR Not detected, Stool EPEC (PCR) Not detected, Stool EAEC (PCR) Not detected, Stl E. histolytica PCR Not detected, Stool Giardia Lamblia PCR Not detected, Stool Salmonella PCR Not detected, Stool Sapovirus (PCR) Not detected, Stl P. shigelloides PCR Not detected, Stl Shigella/EIEC PCR Not detected, St Y.enterocolitica PCR Not detected, Stool Vibrio (PCR) Not detected, Stl Vibrio cholerae PCR Not detected, Stl Norovirus GI/GII PCR Not detected 11/06/18 05:53: POC Glucose 124 H 11/06/18 08:34: WBC 7.5, RBC 3.91 L, Hgb 11.3 L, Hct 35.2 L, MCV 90.1, MCH 28.9, MCHC 32.1, RDW 15.2, Plt Count 371, MPV 7.3 L, Neut % (Auto) 69.0, Lymph % (Auto) 22.6, [place] % (Auto) 5.0, Eos % (Auto) 2.9, Baso % (Auto) 0.5, Neut # (Auto) 5.1, Lymph # (Auto) 1.7, [place] # (Auto) 0.4, Eos # (Auto) 0.2, Baso # (Auto) 0.0 11/06/18 08:34: Sodium 150 H, Potassium 2.8 L*, Chloride 114 H, Carbon Dioxide 27, Anion Gap 11.8, BUN 21 H D, Creatinine 0.67, Estimated Creat Clear 34, Estimated GFR 86, Est GFR ( Amer) 104 D, Glucose 130 H, Calcium 8.4 L, Total Bilirubin 0.5, AST 26, ALT 22, Alkaline Phosphatase 75, Total Protein 5.6 L, Albumin 2.5 L, Globulin 3.1, Albumin/Globulin Ratio 0.8 L 11/06/18 11:14: POC Glucose 138 H I & O for Last 24 hours: Intake & Output 11/04/18 11/05/18 11/06/18 11/07/18 11:59 11:59 11:59 11:59 Intake Total 2800 / 2800 1270 / 1270 Output Total 500 / 500 505 / 505 Balance 2300 / 2300 765 / 765 Weight 97 lb 7 oz Microbiology Reports for the Last 24 Hours: Microbiology 11/04/18 14:14 Blood Blood Culture - Preliminary NO GROWTH AFTER 48 HOURS 11/04/18 14:14 Blood Blood Culture - Preliminary NO GROWTH AFTER 48 HOURS 11/04/18 14:39 Urine,Catheterized Urine Culture - Preliminary Gram Negative Rods Gram Negative Rods#2 - Constitutional no acute distress, thin, chronically ill appearing - *Routine HEENT Exam Head: Present: normocephalic Eye: Present: EOMI, PERRL ENT: Present: mucous membranes moist - *Routine Neck Exam Present: supple. Absent: lymphadenopathy - *Routine Respiratory Exam Present: CTA bilaterally - *Routine Cardiovascular Exam Present: RRR - *Routine Abdominal Exam Present: soft, normoactive bowel sounds. Absent: tenderness - *Routine Extremities Exam Absent: cyanosis, clubbing, edema - *Routine Skin Exam Present: warm. Absent: rash - *Routine Neurological Exam Present: alert Assessment and Plan (1) Nausea & vomiting Current visit: Yes Status: Acute Category: Medical Code(s): R11.2 - Nausea with vomiting, unspecified (2) Dehydration Current visit: Yes Status: Acute Category: Medical Code(s): E86.0 - Dehydration (3) Dysphagia Current visit: Yes Status: Acute Qualifiers: Dysphagia type: unspecified Qualified Code(s): R13.10 - Dysphagia, unspecified Category: Medical Code(s): R13.10 - Dysphagia, unspecified - Assessment and plan all Dx Assessment and Plan for all problems:: Did with Dr. Ye all orders per Dr. Ye surgery consult for poss g tube placement swallowing eval
--- NOTE | 2018-11-06 14:34 | Discharge Summary ---
General - General Admission date:: 11/04/18 Discharge date: 11/06/18 HPI HPI: 73-year-old female presents to the ER with complaints of possible dysphasia and a recent history of nausea/vomiting. Over the past month she has had what was initially described as difficulty swallowing has lost 10 pounds in 1 month. Patient states she cannot swallow but does not know why and that makes her nauseous. Patient admitted for surgery consult.. Hospital Course Hospital Course: chest x ray:nothing acute head ct: IMPRESSION: Findings of moderate cortical atrophy and chronic white matter changes, no definite acute intracranial pathology noted Patient had swallowing eval bedside and a modified barium today patient was unable to swallow. What little she did swallow it looks like it might have leaked. Per speech therapy recommended n.p.o. status at this time. Speech therapy will discuss with speech therapy at [facility] and try eval later date. Patient does not want a feeding tube but is a rider of the state waiting to hear plan of care. Will discharge back to [facility] today with IV fluids for hydration with dextrose. Patient will also receive Rocephin 1 g for UTI for 10 days per IV and p.o. vancomycin for 10 days for C. difficile. Objective Vital signs: Temp Pulse Resp BP Pulse Ox 98.7 F 64 16 144/65 H 98 11/06/18 07:32 11/06/18 07:32 11/06/18 07:32 11/06/18 07:32 11/06/18 07:32 no acute distress, thin, chronically ill appearing - *Routine HEENT Exam Head: Present: normocephalic Eye: Present: PERRL ENT: Present: mucous membranes moist - *Routine Neck Exam Present: supple - *Routine Respiratory Exam Present: CTA bilaterally - *Routine Abdominal Exam Present: soft, normoactive bowel sounds - *Routine Extremities Exam Present: full ROM - *Routine Skin Exam Present: intact - *Routine Neurological Exam Present: alert - Routine Psychiatric Exam Present: normal affect Results Labs on day of discharge: Labs from last 24 hours 11/06/18 11/06/18 11/06/18 11:14 08:34 08:34 WBC 7.5 RBC 3.91 L Hgb 11.3 L Hct 35.2 L MCV 90.1 MCH 28.9 MCHC 32.1 RDW 15.2 Plt Count 371 MPV 7.3 L Neut % (Auto) 69.0 Lymph % (Auto) 22.6 [place] % (Auto) 5.0 Eos % (Auto) 2.9 Baso % (Auto) 0.5 Neut # (Auto) 5.1 Lymph # (Auto) 1.7 [place] # (Auto) 0.4 Eos # (Auto) 0.2 Baso # (Auto) 0.0 Sodium 150 H Potassium 2.8 L* Chloride 114 H Carbon Dioxide 27 Anion Gap 11.8 BUN 21 H D Creatinine 0.67 Estimated Creat Clear 34 Estimated GFR 86 Est GFR ( Amer) 104 D Glucose 130 H POC Glucose 138 H Calcium 8.4 L Total Bilirubin 0.5 AST 26 ALT 22 Alkaline Phosphatase 75 Total Protein 5.6 L Albumin 2.5 L Globulin 3.1 Albumin/Globulin Ratio 0.8 L Urine Color Urine Appearance Urine pH Ur Specific [place] Urine Protein Urine Glucose (UA) Urine Ketones Urine Blood Urine Nitrate Urine Bilirubin Urine Urobilinogen Ur Leukocyte Esterase Urine RBC Urine WBC Ur Squamous Epith Cells Urine Bacteria Stl Aeromonas (PCR) Stl C. cayetanensis PCR Stool Rotavirus (PCR) Stl Adenov F PCR Stool Astrovirus (PCR) Stool Campylobacter PCR Stl C.difficile Tox PCR Stool Cryptosporidium PCR Stl E.coli Shiga Tox PCR Stool E coli O157 PCR Stl Enterotoxigenic E PCR Stool EPEC (PCR) Stool EAEC (PCR) Stl E. histolytica PCR Stool Giardia Lamblia PCR Stool Salmonella PCR Stool Sapovirus (PCR) Stl P. shigelloides PCR Stl Shigella/EIEC PCR St Y.enterocolitica PCR Stool Vibrio (PCR) Stl Vibrio cholerae PCR Stl Norovirus GI/GII PCR 11/06/18 11/06/18 11/05/18 05:53 03:35 19:56 WBC RBC Hgb Hct MCV MCH MCHC RDW Plt Count MPV Neut % (Auto) Lymph % (Auto) [place] % (Auto) Eos % (Auto) Baso % (Auto) Neut # (Auto) Lymph # (Auto) [place] # (Auto) Eos # (Auto) Baso # (Auto) Sodium Potassium Chloride Carbon Dioxide Anion Gap BUN Creatinine Estimated Creat Clear Estimated GFR Est GFR ( Amer) Glucose POC Glucose 124 H 82 Calcium Total Bilirubin AST ALT Alkaline Phosphatase Total Protein Albumin Globulin Albumin/Globulin Ratio Urine Color Urine Appearance Urine pH Ur Specific [place] Urine Protein Urine Glucose (UA) Urine Ketones Urine Blood Urine Nitrate Urine Bilirubin Urine Urobilinogen Ur Leukocyte Esterase Urine RBC Urine WBC Ur Squamous Epith Cells Urine Bacteria Stl Aeromonas (PCR) Not detected Stl C. cayetanensis PCR Not detected Stool Rotavirus (PCR) Not detected Stl Adenov F 40 PCR Not detected Stool Astrovirus (PCR) Not detected Stool Campylobacter PCR Not detected Stl C.difficile Tox PCR Detected A Stool Cryptosporidium PCR Not detected Stl E.coli Shiga Tox PCR Not detected Stool E coli O157 PCR Not detected Stl Enterotoxigenic E PCR Not detected Stool EPEC (PCR) Not detected Stool EAEC (PCR) Not detected Stl E. histolytica PCR Not detected Stool Giardia Lamblia PCR Not detected Stool Salmonella PCR Not detected Stool Sapovirus (PCR) Not detected Stl P. shigelloides PCR Not detected Stl Shigella/EIEC PCR Not detected St Y.enterocolitica PCR Not detected Stool Vibrio (PCR) Not detected Stl Vibrio cholerae PCR Not detected Stl Norovirus GI/GII PCR Not detected 11/05/18 11/05/18 11/05/18 17:06 15:03 12:11 WBC RBC Hgb Hct MCV MCH MCHC RDW Plt Count MPV Neut % (Auto) Lymph % (Auto) [place] % (Auto) Eos % (Auto) Baso % (Auto) Neut # (Auto) Lymph # (Auto) [place] # (Auto) Eos # (Auto) Baso # (Auto) Sodium Potassium Chloride Carbon Dioxide Anion Gap BUN Creatinine Estimated Creat Clear Estimated GFR Est GFR ( Amer) Glucose POC Glucose 78 68 L 68 L Calcium Total Bilirubin AST ALT Alkaline Phosphatase Total Protein Albumin Globulin Albumin/Globulin Ratio Urine Color Urine Appearance Urine pH Ur Specific [place] Urine Protein Urine Glucose (UA) Urine Ketones Urine Blood Urine Nitrate Urine Bilirubin Urine Urobilinogen Ur Leukocyte Esterase Urine RBC Urine WBC Ur Squamous Epith Cells Urine Bacteria Stl Aeromonas (PCR) Stl C. cayetanensis PCR Stool Rotavirus (PCR) Stl Adenov F 4041 PCR Stool Astrovirus (PCR) Stool Campylobacter PCR Stl C.difficile Tox PCR Stool Cryptosporidium PCR Stl E.coli Shiga Tox PCR Stool E coli O157 PCR Stl Enterotoxigenic E PCR Stool EPEC (PCR) Stool EAEC (PCR) Stl E. histolytica PCR Stool Giardia Lamblia PCR Stool Salmonella PCR Stool Sapovirus (PCR) Stl P. shigelloides PCR Stl Shigella/EIEC PCR St Y.enterocolitica PCR Stool Vibrio (PCR) Stl Vibrio cholerae PCR Stl Norovirus GI/GII PCR 11/04/18 14:39 WBC RBC Hgb Hct MCV MCH MCHC RDW Plt Count MPV Neut % (Auto) Lymph % (Auto) [place] % (Auto) Eos % (Auto) Baso % (Auto) Neut # (Auto) Lymph # (Auto) [place] # (Auto) Eos # (Auto) Baso # (Auto) Sodium Potassium Chloride Carbon Dioxide Anion Gap BUN Creatinine Estimated Creat Clear Estimated GFR Est GFR ( Amer) Glucose POC Glucose Calcium Total Bilirubin AST ALT Alkaline Phosphatase Total Protein Albumin Globulin Albumin/Globulin Ratio Urine Color Yellow Urine Appearance Sl cloudy Urine pH 6.0 Ur Specific [place] 1.025 Urine Protein Trace Urine Glucose (UA) Negative Urine Ketones Trace Urine Blood Trace-l Urine Nitrate Negative Urine Bilirubin Negative Urine Urobilinogen 0.2 Ur Leukocyte Esterase 2+ A Urine RBC None Urine WBC 5-10 Ur Squamous Epith Cells 5-10 Urine Bacteria 3+ Stl Aeromonas (PCR) Stl C. cayetanensis PCR Stool Rotavirus (PCR) Stl Adenov F 40/41 PCR Stool Astrovirus (PCR) Stool Campylobacter PCR Stl C.difficile Tox PCR Stool Cryptosporidium PCR Stl E.coli Shiga Tox PCR Stool E coli O157 PCR Stl Enterotoxigenic E PCR Stool EPEC (PCR) Stool EAEC (PCR) Stl E. histolytica PCR Stool Giardia Lamblia PCR Stool Salmonella PCR Stool Sapovirus (PCR) Stl P. shigelloides PCR Stl Shigella/EIEC PCR St Y.enterocolitica PCR Stool Vibrio (PCR) Stl Vibrio cholerae PCR Stl Norovirus GI/GII PCR Preliminary micro results at discharge 11/04/18 14:14 Blood Culture - Preliminary Blood NO GROWTH AFTER 48 HOURS 11/04/18 14:14 Blood Culture - Preliminary Blood NO GROWTH AFTER 48 HOURS 11/04/18 14:39 Urine Culture - Preliminary Urine,Catheterized Gram Negative Rods Gram Negative Rods#2 DS: Diagnosis - Discharge Diagnosis (1) Nausea & vomiting Status: Acute (2) Dehydration Status: Acute (3) Dysphagia Status: Acute Discharge Plan - Patient Discharge Instructions ACTIVITY: Continue current activity DIET: NPO - Follow up Plan Follow up with: Dora Duran APRN [Advanced Practice Nurse] - Disposition: Xfer [facility] Home Medications: Home Medications Medication Instructions Recorded Confirmed Type lisinopril 20 mg tablet 20 mg PO HS 02/17/18 11/05/18 History loperamide 2 mg tablet 2 mg PO Q4HP PRN 02/17/18 11/05/18 History metformin 1,000 mg tablet 1,000 mg PO BID 02/17/18 11/04/18 History risperidone 2 mg tablet 1 mg PO BID 02/17/18 11/05/18 History acetaminophen 500 mg tablet 500 mg PO Q6HP PRN 05/07/18 11/05/18 History melatonin 5 mg capsule 5 mg PO HS 05/07/18 11/05/18 History Escitalopram Oxalate [Lexapro] 5 mg PO DAILY 11/04/18 11/04/18 History Mirtazapine [Remeron 15mg tablet] 15 mg PO HS 11/04/18 11/04/18 History Ceftriaxone 1 gm [Rocephin 1gm ADV] 1 gm IV Q24H 10 Days #10 vial.port 11/06/18 Rx Dex 5% in 0.45% NaCl [Dextrose 50 ml IV CONT 4 Days #1 iv.soln 11/06/18 Rx 5%-0.45% NaCl IV Soln] Metronidaz/Sod Chl [Flagyl 500 mg IV Q8 10 Days #30 piggyback 11/06/18 Rx 500mg/100mL IVPB] Vancomycin HCl [Vancomycin 500mg 125 mg PO QID 10 Days #40 vial 11/06/18 Rx vial] Prescriptions/Medication Reconciliation: New Ceftriaxone 1 gm [Rocephin 1gm ADV] 1 gm IV Q24H 10 Days #10 vial.port Vancomycin HCl [Vancomycin 500mg vial] 125 mg PO QID 10 Days #40 vial Dex 5% in 0.45% NaCl [Dextrose 5%-0.45% NaCl IV Soln] 50 ml IV CONT 4 Days #1 iv.soln Metronidaz/Sod Chl [Flagyl 500mg/100mL IVPB] 500 mg IV Q8 10 Days #30 piggyback Insulin Lispro [HumaLOG 100 units/mL 3mL vial (SSI)] 0 unit SQ ACHS ml Continue lisinopril 20 mg tablet 20 mg PO HS risperidone 2 mg tablet 1 mg PO BID Mirtazapine [Remeron 15mg tablet] 15 mg PO HS Escitalopram Oxalate [Lexapro] 5 mg PO DAILY Discontinued loperamide 2 mg tablet 2 mg PO Q4HP PRN PRN Reason: Diarrhea metformin 1,000 mg tablet 1,000 mg PO BID acetaminophen 500 mg tablet 500 mg PO Q6HP PRN PRN Reason: pain melatonin 5 mg capsule 5 mg PO HS
== END 2018-11-06 17:54 ==
LOC: ER 13:48 → 2ND 13:48
PROVIDERS: ADMIT Emergency Medicine; ATTEND Emergency Medicine
CPT/HCPCS: 36415; 36569; 70371; 70450; 71010; 71045; 80053; 81001; 82150; 82962; 83605; 83690; 84484; 85025; 87040; 87086; 87088; 87186; 87507; 92610; 92611; 93005; 96365; 96375; 99284; C1751; G0378; J2405; J3370